=== PATIENT | male | born 1955 | race Caucasian/White ===

== ENCOUNTER 2019-08-12 07:27 | Day surgery (SDC) | payer OTHER ==
--- NOTE | 2019-08-09 13:07 | HP ---
PREOPERATIVE HISTORY AND PHYSICAL: DATE OF SURGERY/ADMISSION: 08/12/19 - [facility] DATE OF OFFICE VISIT/ENCOUNTER: 07/21/19 ATTENDING SURGEON: Cira Mares MD * (DICTATED BY YOLANDA BAUTISTA) PROCEDURE: Right wrist carpal tunnel release. 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 He has had trouble for about a year. He does not recall specific injury but he recently has been doing a lot of packing because he is moving and this has aggravated both problems. The elbow pain is intermittent and appears to be lateral epicondylitis. The numbness in his hand is relatively constant and involves the median nerve distribution. He has been diagnosed with carpal tunnel syndrome and has consented to proceed with surgical intervention for the carpal tunnel syndrome. PAST MEDICAL HISTORY: 1. Diabetes mellitus 2. 2. Hypercholesterolemia. 3. Anxiety/depression. 4. Aortic stenosis. 5. Seasonal allergies. PAST SURGICAL HISTORY: 1. Bariatric surgery 12 years ago. 2. Bilateral shoulder arthroscopies. 3. Nasal surgery. CURRENT MEDICATIONS: 1. Advil 200 mg as needed. 2. Alprazolam 0.25 mg daily. 3. Atorvastatin calcium 40 mg daily. 4. Cialis. 5. Escitalopram oxylate 10 mg daily. 6. Multivitamin daily. 7. Vitamin B12 daily. 8. Zyrtec Allergy p.r.n. 9. Trulicity daily. ALLERGIES: No known drug allergies. FAMILY MEDICAL HISTORY: Heart disease, cancer, stroke. 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 He denies tobacco use, recreational drug use, and does not drink alcohol. REVIEW OF SYSTEMS: Positive for diarrhea, back pain, peripheral neuropathy, seasonal allergies, depression/anxiety. Otherwise negative for general, cephalic, cardiovascular, respiratory, GI, , other musculoskeletal, integumentary, endocrine, neurologic, and hematologic symptoms. Infectious Disease: Negative for MRSA, hepatitis C, HIV. PHYSICAL EXAMINATION GENERAL: Well-developed, well-nourished 63-year-old male, in no acute distress. VITAL SIGNS: Height 6 feet tall, weight 240 pounds. Pulse rate 72, blood pressure 118/68. HEENT: Normocephalic, atraumatic. Pupils are equal, round, and reactive to light and accommodation. Extraocular movements are intact. Throat is clear. NECK: Supple. No palpable lymph nodes. PULMONARY: Lungs are clear to auscultation bilaterally. No wheezes, rales, or rhonchi. CARDIOVASCULAR: Regular rate and rhythm. S1, S2. Murmur detected on auscultation. No edema. ABDOMEN: Positive bowel sounds. Soft, nontender. NEUROLOGIC: Alert and oriented x3. Cranial nerves II through XII are intact. Sensation is intact to light touch. MUSCULOSKELETAL: On exam of his right upper extremity, he has a positive median nerve compression test. No thenar wasting but weakness with thumb abduction. Otherwise, he has tenderness to palpation at the lateral epicondyle and a negative Tinel's at the ulnar nerve at the elbow. IMPRESSION: Right carpal tunnel syndrome. PLAN: The patient is scheduled to undergo a right wrist carpal tunnel release with Dr. Mares on 08/12/19. He will return to the office 10 days postop for followup and suture removal. A prescription for Tylenol with Codeine was e- scribed to the patient's pharmacy for postoperative pain management. YOLANDA BAUTISTA [id number]/[facility] #: [id number] [facility]
[~2019-08-12 07:27] MED LIST: Buffered Lidocaine 1% SYRIN* 1 ML/SYRINGE INTRADERM ONE; Lactated Ringers 1000 ML Bag* 1,000 ML IV SCH
[2019-08-12] MEDS ORDERED: Lidocaine 1% INJ* 10 MG/ML 30 ML SDV ONE (08:53)
[2019-08-12] MEDS ORDERED: Lidocaine 2% PF * 5 ML VIAL ONE (09:06)
[2019-08-12] MEDS ORDERED: Propofol* 10 MG/ML 20 ML BTL ONE (09:06)
[2019-08-12] MEDS ORDERED: Naloxone* 0.4 MG/ML 1 ML VIAL IV PRN (09:13)
[2019-08-12 11:19] VITALS: BP 140/83
--- NOTE | 2019-08-12 13:51 | OP ---
DATE OF OPERATION: 08/12/19 [facility] DATE OF : 59 SURGEON: Cira Mares MD [employer] OPERATOR: YOLANDA Marinelli ANESTHESIA: Local MAC. PRE-OP DIAGNOSIS: Right carpal tunnel syndrome. POST-OP DIAGNOSIS: Right carpal tunnel syndrome. OPERATIVE PROCEDURE: Right carpal tunnel release. ESTIMATED BLOOD LOSS: Zero. TOURNIQUET TIME: Approximately 10 minutes. INDICATIONS FOR PROCEDURE: Romeo is a 63-year-old female who has numbness and tingling in the median nerve distribution of his right hand. He presents for right carpal tunnel release. DESCRIPTION OF PROCEDURE: The patient was brought to the operating room, was given a sedation anesthetic and a local infiltration of 10 cc of 1% plain lidocaine into the palm of his right hand. The skin of his right hand and forearm was prepped and draped in usual sterile fashion. The hand and forearm were exsanguinated and the tourniquet elevated to 250 mmHg. A longitudinal incision was made in the palm in line with the ring finger. We dissected through the subcutaneous tissue down to the transverse carpal ligament. The ligament was divided sharply with the knife and then more proximally with the scissors. The nerve was dissected free from the surrounding tissue, and there was an area of moderate compression at the midportion of the ligament. The wound was irrigated and the skin edges were reapproximated with 4-0 nylon suture. The wound was dressed with Xeroform, 4x4, Webril, and an Merrick wrap. The patient tolerated the procedure well and was brought to the recovery room in good condition. [id number]/[facility] #: [id number] [facility]ENTER[facility]armony
== END 2019-08-12 10:30 | disposition home or self-care (01) ==
LOC: OREAST 07:27
PROVIDERS: ATTEND Orthopaedic Surgery
DX: G56.01 Carpal tunnel syndrome, right upper limb (principal); E11.9 Type 2 diabetes mellitus without complications; Z79.84 Long term (current) use of oral hypoglycemic drugs; E78.00 Pure hypercholesterolemia, unspecified; F41.8 Other specified anxiety disorders; I35.0 Nonrheumatic aortic (valve) stenosis; J30.2 Other seasonal allergic rhinitis
CPT/HCPCS: J2704